=== PATIENT | female | born 1950 | race Caucasian/White ===

== ENCOUNTER 2022-08-09 09:21 | Outpatient (CLI) | payer MEDICARE, OTHER ==
--- NOTE | 2022-08-09 10:06 | SLEEP CARE CONSULTATION ---
Information from patient questionnaire entered by Shelli Hernandez. I have reviewed and concur with the information entered by Shelli Hernandez. This document represents the service I personally performed and the decisions made by me, Yesenia Farias ARNP. History of Present Illness Service Date and Time: 08/09/2022920 Reason for Visit: New patient, sleep apnea on CPAP therapy Usual bedtime: 9 PM Time it takes to fall asleep: 30 mins Snores at night: Yes Observed to quit breathing while asleep: No Number of times waking at night: 1-2 Reasons for waking at night: reports: Gasping for air, Bathroom, Other (noise) Toss, Turn, or Twitch while sleeping: Yes Recalls having dreams: Yes Usually gets out of bed at: 3-4 AM Feels refreshed in the morning: No Morning headache: Yes (resolves when takes aspirin) Sleepy or fatigued during the day: Yes Ever fallen asleep while driving: No Takes day naps: Yes Dreams during day naps: No Prior sleep studies: Yes Year and Where: 2010? Additional HPI information: FÁTIMA JONES was previously diagnosed to have unknown, AHI unknown, obstructive sleep apnea-hypopnea syndrome but we have not yet got a copy of her sleep study and comes in today to establish care for CPAP therapy. - Parasomnia Symptoms Ever been unable to move upon waking from sleep: No Walks in sleep: No Talks in sleep: No Ever acted out dreams in sleep: No Ever felt weak in the knees when startled or emotional: Yes Bothered by creepy, crawly, restless sensations in legs: Yes (at night, varies) Problems with memory or concentration: No CPAP Compliance Data - Data Reviewed with Patient Average duration of nightly device use: 5 hours 33 minutes Compliance rate %: 96 (179/180 days used) Current pressure setting (cmH2O): 6-12 Average residual AHI: 0.6 Central apnea: 0 Obstructive apnea: 0.3 Hypopnea: 0.2 Average large leak: 1.4 L/min Compliance data discussion: She has a [employer] Airsense 1103/2021. She is using [employer] for her supplies, no issues. She is using full face mask. Subjective Patient concerns: reports: mask leak noise. denies: aerophagia, mask discomfort, air blowing in eyes, condensation in mask/hose, nasal congestion, dry mouth, nose, throat, epistaxis Observed to snore while using device: No Current pressure setting perceived as: comfortable Initial [place] Sleepiness Scale score: 3 (08/09/2022) Past Medical History Past Medical History: reports: Hypertension, Claustrophobia, Arthritis, Anxiety Social History The patient's occupation is a RE. Patient is and lives in [place]. Have you smoked in the past 12 months: No Alcohol use: No Caffeine use: Yes Caffeine amount and frequency: 1 diet pepsi once a day Family History Family history of sleep disordered breathing: No (was adopted, don't know) Allergies and Home Medications Known drug allergies: No Drug allergies reviewed: Yes Home medication list reviewed: Yes Allergy and home medication list: Medications: Atorvastatin 20 mg daily Hydroxyzine 25 mg daily Lisinopril 5 mg daily Cyclobenzaprine, prn, 5 mg Tylenol, prn Ibuprofen, prn Review of Systems Weight gain over past 5 years: 30 Cardiovascular: denies: high blood pressure Respiratory: denies: shortness of breath Gastrointestinal: reports: heartburn Urinary: reports: frequency Neurological: denies: headaches Psychiatric: reports: anxiety, claustrophobia. denies: depression Ear/Nose/Throat: reports: sinus problems. denies: tonsillectomy, wisdom teeth removed Endocrine: reports: sluggishness. denies: thyroid disease Musculoskeletal: reports: joint pain, back pain, joint swelling Immunologic: reports: sneezing Physical Exam Vital signs obtained and entered by: Yesenia Adams NP Blood Pressure: 115/67 Cuff size: wrist (right) Heart Rate: 99 O2 Saturation: 95 Height: 5 ft 5 in Weight: 228 lb 12.8 oz Body Mass Index: 38.0 BMI Classification: Obese Heart: regular rate and rhythm Lungs: clear bilaterally Impression and Plan 1. Obstructive Sleep Apnea-Hypopnea Syndrome, unknown, with good treatment compliance and good apnea control. On CPAP therapy, the patient has better sleep quality and is more rested overall. Patient states she cannot sleep without her CPAP. She will even take it when she goes camping. Patient has significant improvement of their sleep apnea and is satisfied with current CPAP therapy. Patient denies problems with oral dryness, nasal congestion, epistaxis, skin irritation or aerophagia. Patient's apnea severity and rationale for treatment to reduce apnea, improve sleep quality and reduce cardiovascular and cerebrovascular events was reviewed. I also reviewed the benefit of consistent device use of CPAP for hypertension. Once I have a copy of her sleep study mindy rds from her last sleep provider office, I will send a updated prescription to her DME, Michelle. We will follow-up with her next year. 2. Obesity, unspecified. Currently patients BMI is 38. Obesity increases the risk of apnea, CPAP pressure requirements and overall health risks especially cardiovascular and diabetes. Thus patient is advised to lose weight. * Continue auto CPAP pressure at 6-12 cmH2O * Update supplies prescription * Notify me if snoring with mask or feeling that the pressure is too much or too little * Attempt to lose weight * Call this office if any problems using CPAP * Return for follow up in 1 year, or sooner if concerns arise Counseling Topics: Spare mask, Weight loss health impact Visit Type: In Office Time Spent with Patient (minutes): 32 Provider Statement: I spent 100% of the Face to Face Visit with the patient with greater than 50% spent counseling the patient and coordination of care.
[2022-08-09 10:09] VITALS: BP 115/67
== END 2022-08-09 09:22 | disposition home or self-care (01) ==
LOC: SC 09:21
PROVIDERS: ATTEND Nurse Practitioner Family
DX: G47.33 Obstructive sleep apnea (adult) (pediatric) (principal); E66.9 Obesity, unspecified; Z68.38 Body mass index [BMI] 38.0-38.9, adult
CPT/HCPCS: 99203; G0463; 99212

== ENCOUNTER 2023-10-17 10:01 | Outpatient (CLI) | payer MEDICARE, OTHER ==
--- NOTE | 2023-10-17 10:28 | Sleep Patient Instructions ---
Sleep Center Visit Summary - Patient Visit Information Reason for Visit: Annual follow-up for PAP therapy - Patient Instructions Additional Instructions: You will continue with CPAP therapy with pressure set at 6-12 cmH2O. A supply prescription will be updated with your DME supplier. We encourage you to continue to try to lose weight. Please follow up with the sleep care office in 1 year. - Clinic Information Contact: [facility] [address] [place] [address] [email or web address] T: [phone]
--- NOTE | 2023-10-17 10:34 | SLEEP CARE CONSULTATION ---
Information from patient questionnaire entered by Tobi Hernandez. I have reviewed and concur with the information entered by Tobi Hernandez. This document represents the service I personally performed and the decisions made by me, Yesenia Farias ARNP. History of Present Illness Service Date and Time: 10/17/2023 1001 Previous diagnosis: Severe, Obstructive Sleep Apnea-Hypopnea Syndrome AHI: 32.4 (04/23/2006) Reason for follow up: annual (LAST SEEN 07/2022) Equipment type: CPAP (RESMED 11 S/U 04/05/21) Equipment obtained from: [employer] (getting supplies) Mask style: Full face Backup mask available: No Last cushion change: 6 months Prior sleep studies: Yes Year and Where: 2010? HPI additional information: FÁTIMA JONES was diagnosed to have severe, AHI 32.4, obstructive sleep apnea-hypopnea syndrome and returned today for CPAP therapy annual follow-up. Sleep Study - Results Prior sleep studies: Yes Year and Where: 2010? CPAP Compliance Data - Data Reviewed with Patient Average duration of nightly device use: 4 HRS 52 MINS Compliance rate %: 81 (10/15/22-10/14/23; 364/365 days used) Current pressure setting (cmH2O): 6-12 Average residual AHI: 0.7 Central apnea: 0 Obstructive apnea: 0.3 Hypopnea: 0.3 Average large leak: 1.1 L/min Subjective Missed days of use due to: reports: travel Patient concerns: reports: mask discomfort, air blowing in eyes. denies: aerophagia, mask leak noise, condensation in mask/hose, nasal congestion, dry mouth, nose, throat, epistaxis Observed to snore while using device: No Current pressure setting perceived as: comfortable On therapy, patient: reports: sleeping better, awakening more refreshed, being more awake and alert during the day, more rested overall. denies: drowsiness while driving Initial [place] Sleepiness Scale score: 3 (08/09/2022) Current [place] Sleepiness Scale score: 2 (10/17/23) Allergies and Home Medications Known drug allergies: No Drug allergies reviewed: Yes Home medication list reviewed: Yes (no changes) Review of Systems Review of systems same as previous: Yes (NO CHANGE) Physical Exam Vital signs obtained and entered by: TOBI Callaway MA Blood Pressure: 120/67 (LEFT ARM) Cuff size: regular Heart Rate: 56 O2 Saturation: 96 Height: 5 ft 5 in Weight: 205 lb 6.4 oz Weight change since last visit: 23 lb loss Body Mass Index: 34.2 BMI Classification: Obese Impression and Plan 1. Obstructive Sleep Apnea-Hypopnea Syndrome, severe, with good treatment compliance and good apnea control. On CPAP therapy, the patient has better sleep quality and is more rested overall. Patient has significant improvement of their sleep apnea and is satisfied with current CPAP therapy. Patient denies problems with oral dryness, nasal congestion, epistaxis, skin irritation or aerophagia. Patient's apnea severity and rationale for treatment to reduce apnea, improve sleep quality and reduce cardiovascular and cerebrovascular events was reviewed. I also reviewed the benefit of consistent device use of CPAP for hypertension and anxiety. 2. Obesity, unspecified. Currently patients BMI is 34.2. She has lost weight. Obesity increases the risk of apnea, CPAP pressure requirements and overall health risks especially cardiovascular and diabetes. Thus patient is advised to continue to try to lose weight. The patient's CPAP pressure range should accommodate some weight loss. Symptoms to report for additional pressure adjustment discussed. lose weight. * Continue auto CPAP pressure at 6-12 cmH2O * Update supply prescription. * Notify me if snoring with mask or feeling that the pressure is too much or too little * Attempt to lose weight * Call this office if any problems using CPAP * Return for follow up in 12 months, or sooner if concerns arise Counseling Topics: Spare mask, Weight loss health impact Prescriptions: Device supplies (with mask refitting) Follow up with Sleep Care in: 1 year Visit Type: In Office Time Spent with Patient (minutes): 20 Provider Statement: I spent 100% of the Face to Face Visit with the patient with greater than 50% spent counseling the patient and coordination of care.
[2023-10-17 10:39] VITALS: BP 120/67; O2SAT 96
== END 2023-10-17 10:02 | disposition home or self-care (01) ==
LOC: SC 10:01
PROVIDERS: ATTEND Nurse Practitioner Family
DX: G47.33 Obstructive sleep apnea (adult) (pediatric) (principal); E66.9 Obesity, unspecified; Z68.34 Body mass index [BMI] 34.0-34.9, adult
CPT/HCPCS: 99213; G0463; 99212